=== PATIENT | female | born 1990 | race African-American/Black ===

== ENCOUNTER 2021-04-10 08:58 | Emergency (ER) | payer OTHER ==
[~2021-04-10] VITALS: Ht 162.6 cm; Wt 63.5 kg
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
[2021-04-10] MEDS ORDERED: ACETAMINOPHEN 325 MG TABLET PO ONE (09:30)
--- NOTE | 2021-04-10 09:40 | NUR ---
The patient refused to give urine for check prior CT despite explaining risks and benefits.
[2021-04-10] MEDS ORDERED: ACETAMINOPHEN ES 500 MG TABLET ONE (10:00)
[2021-04-10 10:55] VITALS: BP 110/66
--- NOTE | 2021-04-10 10:56 | NUR ---
Patient discharged to home in stable condition. Written and verbal after care instructions given. Patient verbalizes understanding of instruction.
== END 2021-04-10 10:56 | disposition home or self-care (01) ==
LOC: ER 09:00
DX: S63.692A Other sprain of right middle finger, initial encounter (principal); S50.312A Abrasion of left elbow, initial encounter; S50.311A Abrasion of right elbow, initial encounter; R51.9 Headache, unspecified; Z88.1 Allergy status to other antibiotic agents; V49.49XA Driver injured in collision with other motor vehicles in traffic accident, initial encounter; Y93.89 Activity, other specified; Y92.488 Other paved roadways as the place of occurrence of the external cause; Y99.8 Other external cause status
CPT/HCPCS: 70450-TC; 72125-TC; 73130-TC; 73630-TC